=== PATIENT | male | born 1965 | race Caucasian/White ===

== ENCOUNTER 2021-01-19 14:06 | Inpatient (IN) ==
[2021-01-19 16:19] LABS: Basophils # 0.1 10*3/uL (0.0-0.2); Basophils % 0.7 % (0.0-0.8); Eosinophils # 0.2 10*3/uL (0.0-0.87); Eosinophils % 2.4 % (0.00-10.9); Hematocrit 39.6 VOL% (42.0-52.0); Hemoglobin 12.7 GM/DL (14.0-18.0); Immature Granulocytes % 0.4 %; Immature Granulocytes Absolute 0.04 #; Lymphocytes # 1.5 10*3/uL (1.4-4.0); Lymphocytes % 16.2 % (21.2-54.2); Mean Corpuscular HGB Conc 32.1 GM/DL (32-36); Mean Corpuscular Volume 94.1 FL (87-102); Mean Platelet Volume 9.6 FL (9.6-12.0); Monocytes % 11.6 % (1.7-12.7); Neutrophils % 68.7 % (38.7-73.9); Platelet Count 243 T/CUMM (130-400); Red Blood Count 4.21 MC/CUMM (3.8-5.5); Red Cell Distribution Width 13.5 % (9.3-17.3); White Blood Count 9.1 T/CUMM (4-12)
[2021-01-19 16:47] LABS: Albumin 3.3 G/DL (3.4-5.0); Bilirubin,Total 0.4 MG/DL (0.2-1.0); Calcium 8.1 MG/DL (8.5-10.1); Osmolality,Calculated 269.2 MOS/KG (273-304); Potassium 3.8 MMOL/L (3.5-5.1); Total Protein 7.1 G/DL (6.4-8.2)
[2021-01-19] MEDS ORDERED: LACTATED RINGERS 1,000 ML IV ONE (18:26)
[2021-01-19] MEDS ORDERED: ONDANSETRON 4 MG/2 ML VIAL IV STA (18:26)
[2021-01-19] MEDS ORDERED: PIPERACILLIN/TAZOBACTAM 3,375 MG in SODIUM CHLORIDE 0.9% 100 ML IV STA (18:27)
[2021-01-19] MEDS ORDERED: MORPHINE 4 MG/1 ML VIAL IV STA (18:27)
[2021-01-19] MEDS ORDERED: VANCOMYCIN INJ 1,000 MG in SODIUM CHLORIDE 0.9% 250 ML IV SCH (21:00)
[2021-01-19] MEDS ORDERED: DEXTROSE 50% 25 GM/50 ML VIAL IV PRN (21:22)
[2021-01-19] MEDS ORDERED: GLUCAGON 1 MG VIAL IM PRN (21:22)
[2021-01-19] MEDS ORDERED: traZODone 50 MG TABLET PO PRN (21:22)
[2021-01-19] MEDS ORDERED: ONDANSETRON 4 MG/2 ML VIAL IV PRN (21:22)
[2021-01-19] MEDS: SODIUM CHLORIDE 0.45% 1,000 ML IV SCH (22:30)
[2021-01-19] MEDS: POLYETHYLENE GLYCOL POWDER 17 GM PACK PO SCH (22:53)
[2021-01-19] MEDS: DOCUSATE SODIUM 100 MG CAPSULE PO SCH (22:53)
[2021-01-19] MEDS: carvediloL 3.125 MG TABLET PO SCH (22:53)
[2021-01-19] MEDS: APIXABAN 5 MG TABLET PO SCH (22:53)
[2021-01-19] MEDS: VANCOMYCIN INJ 1,250 MG in SODIUM CHLORIDE 0.9% 250 ML IV SCH (23:13)
[2021-01-20 05:58] LABS: Basophils # 0.1 10*3/uL (0.0-0.2); Basophils % 0.7 % (0.0-0.8); Eosinophils # 0.3 10*3/uL (0.0-0.87); Eosinophils % 3.3 % (0.00-10.9); Hemoglobin 14.3 GM/DL (14.0-18.0); Immature Granulocytes % 0.3 %; Immature Granulocytes Absolute 0.03 #; Lymphocytes # 2.4 10*3/uL (1.4-4.0); Lymphocytes % 24.2 % (21.2-54.2); Mean Corpuscular HGB Conc 31.8 GM/DL (32-36); Mean Corpuscular Volume 94.3 FL (87-102); Monocytes % 13.8 % (1.7-12.7); Neutrophils % 57.7 % (38.7-73.9); Platelet Count 243 T/CUMM (130-400); Red Blood Count 4.77 MC/CUMM (3.8-5.5); Red Cell Distribution Width 13.3 % (9.3-17.3); White Blood Count 9.8 T/CUMM (4-12)
[2021-01-20 06:23] LABS: Osmolality,Calculated 262.5 MOS/KG (273-304); Potassium 4.2 MMOL/L (3.5-5.1)
[2021-01-20 06:36] LABS: Risk Ratio 3.72; VLDL CHOLESTEROL 13.6 MG/DL
[2021-01-20] MEDS: carvediloL 3.125 MG TABLET PO SCH ×2 (08:22→20:56)
[2021-01-20] MEDS: DOCUSATE SODIUM 100 MG CAPSULE PO SCH ×2 (08:22→20:59)
[2021-01-20] MEDS: LINACLOTIDE 145 MCG CAPSULE PO SCH (08:22)
[2021-01-20] MEDS: amLODIPine 5 MG TABLET PO SCH (08:22)
[2021-01-20] MEDS: POLYETHYLENE GLYCOL POWDER 17 GM PACK PO SCH ×2 (08:22→20:59)
[2021-01-20] MEDS: MORPHINE 4 MG/1 ML VIAL IV PRN (08:23)
[2021-01-20] MEDS: APIXABAN 5 MG TABLET PO SCH ×2 (08:23→21:00)
[2021-01-20] MEDS: cefTRIAXone 2,000 MG in SODIUM CHLORIDE 0.9% 100 ML IV SCH (08:23)
[2021-01-20] MEDS: NICOTINE 21 MG/24 HR PATCH TRANSDERM SCH (08:35)
[2021-01-20] MEDS: VANCOMYCIN INJ 1,250 MG in SODIUM CHLORIDE 0.9% 250 ML IV SCH ×2 (10:46→23:17)
[2021-01-20] MEDS: SODIUM CHLORIDE 0.45% 1,000 ML IV SCH ×3 (14:35→16:16)
[2021-01-21] MEDS: SODIUM CHLORIDE 0.45% 1,000 ML IV SCH ×4 (04:19→21:54)
[2021-01-21 04:57] LABS: Basophils # 0.1 10*3/uL (0.0-0.2); Basophils % 0.7 % (0.0-0.8); Eosinophils # 0.6 10*3/uL (0.0-0.87); Hematocrit 40.8 VOL% (42.0-52.0); Hemoglobin 13.7 GM/DL (14.0-18.0); Immature Granulocytes % 0.3 %; Immature Granulocytes Absolute 0.03 #; Lymphocytes # 2.6 10*3/uL (1.4-4.0); Lymphocytes % 28.9 % (21.2-54.2); Mean Corpuscular HGB Conc 33.6 GM/DL (32-36); Mean Corpuscular Volume 92.7 FL (87-102); Mean Platelet Volume 10.2 FL (9.6-12.0); Monocytes % 12.7 % (1.7-12.7); Neutrophils % 51.4 % (38.7-73.9); Platelet Count 220 T/CUMM (130-400); Red Cell Distribution Width 13.2 % (9.3-17.3); White Blood Count 9.1 T/CUMM (4-12)
[2021-01-21 05:19] LABS: Calcium 8.6 MG/DL (8.5-10.1); Osmolality,Calculated 276.7 MOS/KG (273-304); Potassium 4.4 MMOL/L (3.5-5.1)
[2021-01-21] MEDS ORDERED: LIDOCAINE 2% 5 ML VIAL ONE (06:48)
[2021-01-21] MEDS ORDERED: propofoL 200 MG/20 ML VIAL IV ONE (06:48)
[2021-01-21] MEDS ORDERED: MIDAZOLAM 2 MG/2 ML VIAL ONE (06:49)
[2021-01-21] MEDS ORDERED: fentaNYL 100 MCG/2 ML VIAL ONE (06:49)
[2021-01-21] MEDS ORDERED: SEVOFLURANE 1 UNIT/15 MINUTE INH ONE (07:29)
[2021-01-21] MEDS ORDERED: ONDANSETRON 4 MG/2 ML VIAL ONE (07:29)
[2021-01-21] MEDS: LINACLOTIDE 145 MCG CAPSULE PO SCH (07:45)
[2021-01-21] MEDS: cefTRIAXone 2,000 MG in SODIUM CHLORIDE 0.9% 100 ML IV SCH (08:32)
[2021-01-21] MEDS: carvediloL 3.125 MG TABLET PO SCH ×2 (08:34→20:36)
[2021-01-21] MEDS: amLODIPine 5 MG TABLET PO SCH (08:34)
[2021-01-21] MEDS: POLYETHYLENE GLYCOL POWDER 17 GM PACK PO SCH ×2 (08:52→20:43)
[2021-01-21] MEDS: DOCUSATE SODIUM 100 MG CAPSULE PO SCH ×2 (08:52→20:36)
[2021-01-21] MEDS: NICOTINE 21 MG/24 HR PATCH TRANSDERM SCH (08:52)
[2021-01-21] MEDS: APIXABAN 5 MG TABLET PO SCH ×2 (08:52→20:36)
[2021-01-21] MEDS: VANCOMYCIN INJ 1,250 MG in SODIUM CHLORIDE 0.9% 250 ML IV SCH ×2 (11:23→23:24)
[2021-01-21] MEDS: ALBUTEROL/IPRATROPIUM 3 ML NEB RESP TX PRN ×2 (14:02→20:48)
[2021-01-21] MEDS: ACETYLCYSTEINE 20% 800 MG/4 ML VIAL RESP TX SCH ×2 (14:02→20:48)
[2021-01-21] MEDS: diphenhydrAMINE CAP 25 MG CAPSULE PO PRN ×2 (16:03→22:10)
[2021-01-21] MEDS: MORPHINE 4 MG/1 ML VIAL IV PRN (19:27)
[2021-01-22] MEDS: ALBUTEROL/IPRATROPIUM 3 ML NEB RESP TX PRN (07:05)
[2021-01-22] MEDS: ACETYLCYSTEINE 20% 800 MG/4 ML VIAL RESP TX SCH (07:05)
[2021-01-22] MEDS: MORPHINE 4 MG/1 ML VIAL IV PRN ×2 (08:26→12:25)
[2021-01-22] MEDS: cefTRIAXone 2,000 MG in SODIUM CHLORIDE 0.9% 100 ML IV SCH (08:28)
[2021-01-22] MEDS: POLYETHYLENE GLYCOL POWDER 17 GM PACK PO SCH (08:33)
[2021-01-22] MEDS: LINACLOTIDE 145 MCG CAPSULE PO SCH (08:34)
[2021-01-22] MEDS: DOCUSATE SODIUM 100 MG CAPSULE PO SCH (08:35)
[2021-01-22] MEDS: APIXABAN 5 MG TABLET PO SCH (08:35)
[2021-01-22] MEDS: amLODIPine 5 MG TABLET PO SCH (08:35)
[2021-01-22] MEDS ORDERED: SKIN HEALING OINT (AQUAPHOR) 50 GM TUBE TOP PRN (09:29)
[2021-01-22] MEDS: carvediloL 3.125 MG TABLET PO SCH (11:00)
[2021-01-22 11:38] VITALS: BP 167/74
[2021-01-22] MEDS: NICOTINE 21 MG/24 HR PATCH TRANSDERM SCH (12:01)
[2021-01-22] MEDS: SODIUM CHLORIDE 0.45% 1,000 ML IV SCH (12:37)
[2021-01-22] MEDS: VANCOMYCIN INJ 1,250 MG in SODIUM CHLORIDE 0.9% 250 ML IV SCH (12:39)
== END 2021-01-22 15:47 | disposition home or self-care (01) | DRG 571 ==
LOC: N.ED 14:06 → N.EDINP 19:29 → SUATTDRO 19:29 → N.EDINP 21:57 → N.3E 22:04
PROVIDERS: ADMIT Internal Medicine; ATTEND Internal Medicine